=== PATIENT | female | born 1980 | race Caucasian/White ===

== ENCOUNTER 2017-10-17 14:10 | Emergency (ER) | payer OTHER ==
[~2017-10-17] VITALS: Ht 160 cm; Wt 77.1 kg
[2017-10-17] MEDS ORDERED: SYNTHROID100 MCG PO (14:33)
[2017-10-17] MEDS ORDERED: VITAMIN B-12500 MCG PO (14:33)
[2017-10-17] MEDS ORDERED: UNICOMPLEX M TA1 TA1 PO (14:33)
[2017-10-17] MEDS ORDERED: MAGNESIUM-VIT1 EACH PO (14:34)
[2017-10-17] MEDS ORDERED: CALCIUM 500 +1 EAC5 PO (14:34)
[2017-10-17 15:06] LABS: URINE BILIRUBIN NEGATIVE (Negative); URINE BLOOD NEGATIVE (Negative); URINE COLOR YELLOW; URINE GLUCOSE-RANDOM* NEGATIVE (Negative); URINE KETONES NEGATIVE (Negative); URINE LEUKOCYTES-REFLEX NEGATIVE (Negative); URINE PROTEIN (DIPSTICK) NEGATIVE (Negative); URINE SPECIFIC GRAVITY >= 1.030 (1.005-1.035); URINE UROBILINOGEN 0.2 E.U./dl (0.2-1.0)
[2017-10-17 15:16] LABS: HEMATOCRIT 28.2 % (37.0-47.0); HEMOGLOBIN 8.3 gm/dL (12.0-15.0); MCHC 29.3 g/dL (28.0-37.0); PLATELET COUNT 375 thou/uL (150-400); RBC 4.34 mil/uL (4.20-5.00); RDW 17.7 % (10.5-14.5); WBC 9.1 thou/uL (4.0-11.0)
[2017-10-17 15:17] LABS: MANUAL DIFF YES
[2017-10-17 15:32] LABS: CALCIUM 8.3 mg/dL (8.5-10.1); CREATININE 0.5 mg/dL (0.6-1.0); POTASSIUM 4.1 mmol/L (3.5-5.1)
[2017-10-17 15:39] LABS: ALBUMIN 3.2 g/dL (3.4-5.0); TOTAL BILIRUBIN 0.2 mg/dL (<0.1-1.0); TOTAL PROTEIN 6.8 g/dL (6.4-8.2)
[2017-10-17 15:55] LABS: ABSOLUTE NEUTROPHILS 6.6 thou/uL (1.4-8.2); TOTAL CELL COUNT 100
[2017-10-17 15:56] LABS: ANISOCYTOSIS 2+; HYPOCHROMASIA 2+; MICROCYTES 2+
[2017-10-17 15:57] LABS: OVALOCYTES 1+
[2017-10-17 16:19] LABS: AMP/METHAMP POSITIVE (Negative); BARBITURATES Negative (Negative); BENZODIAZEPINES Negative (Negative); COCAINE Negative (Negative); METHADONE Negative (Negative); OPIATES Negative (Negative); PCP Negative (Negative)
[2017-10-17] MEDS ORDERED: TRAMADOL 50 MG50 MG PO (16:55)
[2017-10-17] MEDS ORDERED: NAPROSYN500 MG PO (16:55)
[2017-10-17] MEDS ORDERED: CLEOCIN HCL150 MG PO (16:55)
[2017-10-17 18:29] VITALS: BP 119/80
== END 2017-10-17 18:31 | disposition home or self-care (01) ==
LOC: ER 14:10
PROVIDERS: Emergency Medicine
DX: L02.414 Cutaneous abscess of left upper limb (principal); Z98.890 Other specified postprocedural states

== ENCOUNTER 2017-11-05 01:51 | Inpatient (IN) | payer SELFPAY ==
[~2017-11-05] VITALS: Ht 160 cm; Wt 77.1 kg
--- NOTE | ~2017-11-05 | P ---
[facility] [place] [address] PROCEDURE REPORT Name: TENZIN URENA Room #: 406-P [facility] IN M.R.#: [id number] Admission: 11/05/17 Attend Phys: Zeyad Jovel, Discharge: 11/09/17 Date of : 80 Report #: [id number] THIS REPORT FOR: //name// CC: [facility] physician/PCP Zeyad Jovel DO DATE OF SERVICE: 11/08/2017 PATIENT OF: Dr. Zeyad Jovel. INDICATION FOR PROCEDURE: Evaluate right-sided abdominal pain. Today, the patient indicates that she is tender in her right lower quadrant and infraumbilical area. She does not have any rebound or guarding. She has a history of gastric bypass surgery several years ago. Informed consent for this procedure was obtained prior to the administration of any medication. The risks of the procedure which include bleeding, perforation, infection, complications of sedation and the possibility I could miss something have been explained to the patient and she has indicated her consent by signing. Propofol was slowly titrated before and during this procedure for patient comfort by the anesthesia service. The [employer] upper videoscope was introduced through the upper esophageal sphincter and advanced under direct visualization to the gastric pouch and then advanced down into the jejunum through the gastrojejunostomy. Findings are noted on withdrawal of the scope. The jejunal mucosa that was visualized to the length of the scope appears normal. The gastrojejunostomy anastomosis appears intact. The gastric pouch is quite small, but it appears intact also without any erythema. The scope was then withdrawn into the esophagus. The Z-line is appropriately located at the bottom of the esophagus and is intact. The esophageal mucosa appears normal throughout its entirety. The scope was withdrawn. The patient went to the recovery area in stable condition. She tolerated the procedure well. IMPRESSION: Normal esophagus, gastric pouch, gastrojejunostomy and visualized portions of the jejunum as above. Recommendations are for her to consider taking some laxatives to alleviate the constipation, possibly some suppositories as well. We will ask her to follow up with [facility] doctor as an outpatient to further evaluate her heavy menstrual blood loss and evaluate her uterine fibroid and ovarian cyst. The patient is premenopausal. This may be a simple corpus luteum cyst. [facility] [address] [place] [address] PROCEDURE REPORT Name: TENZIN URENA Room #: 406-P [facility] IN M.R.#: [id number] Admission: 11/05/17 Attend Phys: Zeyad Jovel DO Discharge: 11/09/17 Date of : 80 Report #: [id number] Thank you very much once again for allowing me to participate in her care, Dr. Jovel. <ELECTRONICALLY SIGNED> By: Ani Ayers DO 11/09/17 2133 1541 Ani Ayers, /nt
--- NOTE | ~2017-11-05 | HC ---
[facility] [place] [address] CONSULTATION Name: TENZIN URENA Room #: 406-P [facility] IN M.R.#: [id number] Admission: 11/05/17 Attend Phys: Zeyad Jovel DO Discharge: Date of : 80 Report #: [id number] THIS REPORT FOR: //name// CC: [facility] physician/PCP Zeyad Jovel DATE OF SERVICE: 11/05/2017 REASON FOR CONSULTATION: The patient is a 37-year-old woman with abdominal pain and abnormal liver function studies. HISTORY OF PRESENT ILLNESS: This patient has a history of morbid obesity and in May 2015, had a gastric bypass surgery. She reports that she lost approximately 150 pounds following that surgery. However, in August 2016, she developed a right upper quadrant pain and was evaluated, and had a cholecystectomy. It is not clear to me whether stones are identified or not. Regardless, she reports her pain improved following her cholecystectomy. History is also significant for drug use, originally narcotics related pain and later methamphetamine. She reports that she has had a recent relapse and is back using methamphetamines. She also admits that she does use needles. In the past 2 weeks, she has developed pain, which is in the right upper quadrant. The pain will come and go. It is often a dull and sharp pain, but at times will become so intense that it will cause her to double over. Interestingly, she reports that she is more likely to have pain if she does some sort of exertion such as lifting. She had recently moving stuff with her parents and had more pain. Due to this pain, she presented to the Emergency Room. She also complains of nausea and some diarrhea. She underwent evaluation in the Emergency Room. Laboratory studies revealed a white count of 5.5, hemoglobin of 7.3, MCV of 64.5 and a platelet count of 309,000. INR is normal at 1.1. Electrolytes are normal. BUN is 12, creatinine 0.5. Blood sugar is 107, calcium 8.0. Total bilirubin was 0.6, AST of 566, ALT of 407, alkaline phosphatase of 244. Albumin is 3.3, lipase of 106. In addition, she had a CT scan of the abdomen and pelvis with contrast. There is evidence of prior cholecystectomy. There is prominence of the extrahepatic common bile duct, which was seen on a CT last month when she had Emergency Room visit for pain. There has not been significant change in the prominence of the bile duct. No stones were identified. There was mild haziness of the small bowel mesentery with scattered lymph nodes, which was nonspecific. There may be a small amount of free pelvic fluid, but not significant ascites. Also, changes of previous gastric bypass were noted. She has a large uterine fibroid and also 4.3 right adnexal mass. [facility] [address] [place] [address] CONSULTATION Name: TENZIN URENA Room #: 406-P [facility] IN M.R.#: [id number] Admission: 11/05/17 Attend Phys: Zeyad Jovel DO Discharge: Date of : 80 Report #: [id number] With regards to liver disease, she reports no prior liver disease. She has not had jaundice or hepatitis in the past. She has used needles as noted above. She does not consume alcohol. There is no family history of liver disease. With regards to iron deficiency anemia, this has been a long-term problem. She reports she has had heavy menses. She was to take medication for her endometrium, but did not do so because she was concerned about the risk of cancer. She reports that at this time, her periods have been more stable, usually about once per month, the flow can be heavy and at times, she will pass large clots. PAST MEDICAL HISTORY: Abscess of the left arm, uterine mass. ALLERGIES: NONSTEROIDALS. I do not believe she is allergic, but she was told not to take them with her gastric bypass. MEDICATIONS: Usual home medicines are calcium, clindamycin, B12, levothyroxine, which she has not taken about a week or so, magnesium, and multivitamins with iron. FAMILY HISTORY: No family history of colon cancer or gallbladder disease. SOCIAL HISTORY: Single, no children. She works with software analysis. She smoked in the past, but not recently. REVIEW OF SYSTEMS: GENERAL: She felt warm, but never took her temperature, so she does not know if she has had a fever. She has not had any chills. CENTRAL NERVOUS SYSTEM: She reports she had seizures in the past, but also reports they were never evaluated and she has not had one recently. No focal weakness, numbness, loss of consciousness, strokes. ENT: No change in vision or hearing or sores in the mouth. PULMONARY: No cough, pneumonia or tuberculosis. CARDIOVASCULAR: No chest pain, chest tightness or palpitations. GASTROINTESTINAL: Some nausea, no vomiting, no hematemesis, no rectal bleeding, no previous GI evaluation. GENITOURINARY: Without dysuria or pyuria. GYNECOLOGIC: Heavy menses, uterine fibroid, and ovarian mass. MUSCULOSKELETAL: No arthralgias or myalgias. SKIN: Without rashes. PSYCHIATRIC: No depression, anxiety or bipolar illness. She has a drug addiction. HEMATOLOGIC: Iron deficiency anemia, no bleeding or bruising, no known neoplasm. PHYSICAL EXAMINATION: [facility] [address] [place] [address] CONSULTATION Name: TENZIN URENA Room #: 406-P [facility] IN [facility]#: [id number] Admission: 11/05/17 Attend Phys: Zeyad Jovel DO Discharge: Date of : 80 Report #: [id number] GENERAL: The patient is a well-developed, well-nourished woman who is awake, alert and oriented, no acute distress. VITAL SIGNS: Blood pressure is 122/66, pulse of 56. HEENT: Anicteric. Pupils are equal and round. Oropharynx is clear. NECK: Supple. CHEST: Clear. HEART: Regular rate and rhythm, normal S1 and S2. ABDOMEN: Normal bowel sounds, soft with mild right upper quadrant tenderness. Interestingly, she is most tender with palpation of the right lateral and right anterior chest wall. Pressing this area reproduces pain more so than pushing in the right upper quadrant under the costal margin. RECTAL: Not done. EXTREMITIES: Without cyanosis, clubbing, edema. NEUROLOGIC: Oriented to person, place, and time. Moves all 4 extremities well. ASSESSMENT: 1. Right upper quadrant pain. 2. Elevated LFTs. 3. Prominence of common bile duct, status post cholecystectomy. 4. Previous Kalyani-en-Y gastric bypass. 5. Iron deficiency anemia, long-term. COMMENT: On exam, there seemed to be more tenderness on the chest wall rather than the right upper quadrant. Etiology of her elevated transaminases is not entirely clear. It is also possible she has an acute hepatitis as she has been using drugs recently. She reports IV drug use. It is also noted when she is in the Emergency Room on 10/17/2017, her LFTs were completely normal at that time. RECOMMENDATIONS: 1. MRCP for further evaluation of biliary tree. 2. If there is concern of choledocholithiasis, may need to consider referral to another center as she has had a Kalyani-en-Y gastric bypass, which markedly limits access to the papilla and distal common bile duct. 3. Monitor liver function studies. 4. Check acute hepatitis panel. 5. Consider musculoskeletal source of her pain. <ELECTRONICALLY SIGNED> By: Kavin Wakefield MD 11/06/17 1631 [id number] Kavin Wakefield MD /nt
[~2017-11-05 01:51] MED LIST: CALCIUM 500 +1 EAC5 PO; CLEOCIN HCL150 MG PO; MAGNESIUM-VIT1 EACH PO; NAPROSYN500 MG PO; SYNTHROID100 MCG PO; TRAMADOL 50 MG50 MG PO; UNICOMPLEX M TA1 TA1 PO; VITAMIN B-12500 MCG PO
[2017-11-05 01:58] VITALS: BP 106/67
[2017-11-05 03:51] LABS: ABSOLUTE NEUTROPHILS 3.6 thou/uL (1.4-8.2); BASOPHILS 0.5 % (0.0-2.0); EOSINOPHILS 1.2 % (0.0-3.0); HEMATOCRIT 23.7 % (37.0-47.0); HEMOGLOBIN 7.3 gm/dL (12.0-15.0); LYMPHOCYTES 23.4 % (24.0-44.0); MCH 19.8 pg (26.0-34.0); MCHC 30.7 g/dL (28.0-37.0); MCV 64.5 fL (80.0-100.0); PLATELET COUNT 309 thou/uL (150-400); POLYS 65.9 % (36.0-66.0); RBC 3.68 mil/uL (4.20-5.00); WBC 5.5 thou/uL (4.0-11.0)
[2017-11-05 03:58] LABS: CREATININE 0.5 mg/dL (0.6-1.0); POTASSIUM 3.8 mmol/L (3.5-5.1)
[2017-11-05 04:04] LABS: ALBUMIN 3.3 g/dL (3.4-5.0); DIRECT BILIRUBIN 0.2 mg/dL (<0.1-0.3); TOTAL BILIRUBIN 0.6 mg/dL (<0.1-1.0); TOTAL PROTEIN 6.2 g/dL (6.4-8.2)
[2017-11-05 04:44] LABS: ANISOCYTOSIS 3+; HYPOCHROMASIA 1+; MICROCYTES 3+; OVALOCYTES 2+
[2017-11-05 06:32] LABS: APTT 26.8 Seconds (24.5-32.8); INR 1.1; PROTIME 11.6 Seconds (9.3-11.4)
[2017-11-05 08:03] VITALS: BP 129/76
[2017-11-05 10:17] VITALS: BP 127/66
[2017-11-05 16:00] VITALS: BP 121/76
[2017-11-05 16:02] LABS: % SATURATION 5 % (20-39); IRON 21 ug/dL (50-170); TIBC 413 ug/dL (250-450)
[2017-11-05 20:00] VITALS: BP 128/76
[2017-11-05 20:26] LABS: AMP/METHAMP POSITIVE (Negative); BARBITURATES Negative (Negative); BENZODIAZEPINES Negative (Negative); COCAINE Negative (Negative); METHADONE Negative (Negative); OPIATES Negative (Negative); PCP Negative (Negative)
[2017-11-05 20:28] LABS: URINE BLOOD NEGATIVE (Negative); URINE CLARITY CLOUDY; URINE COLOR BROWN; URINE GLUCOSE-RANDOM* NEGATIVE (Negative); URINE KETONES 1+ (Negative); URINE NITRITE-REFLEX NEGATIVE (Negative); URINE PROTEIN (DIPSTICK) NEGATIVE (Negative); URINE SPECIFIC GRAVITY >= 1.030 (1.005-1.035); URINE UROBILINOGEN 0.2 E.U./dl (0.2-1.0)
[2017-11-05 20:36] LABS: ICTOTEST (BILI CONFIRMATORY) Negative (Negative); URINE BILIRUBIN NEGATIVE (Negative); URINE LEUKOCYTES-REFLEX TRACE (Negative)
[2017-11-05 20:38] LABS: AMORPHOUS URATES Many /LPF (None Seen); BACTERIA-REFLEX 1-9 Few /HPF (None Seen); CASTS None Seen /LPF (None Seen); CRYSTALS None Seen /LPF (None Seen); MUCUS 0-3 Light strn/LPF (None Seen); SQUAMOUS None Seen /LPF (0-3); URINE RBC None Seen /HPF (0-2); URINE WBC-REFLEX 0-5 Rare /HPF (0-5)
[2017-11-05 20:39] LABS: URIC ACID CRYSTALS >10 Many /LPF (None Seen)
[2017-11-06 04:00] VITALS: BP 119/76
[2017-11-06 06:25] LABS: ABSOLUTE NEUTROPHILS 4.3 thou/uL (1.4-8.2); BASOPHILS 0.6 % (0.0-2.0); EOSINOPHILS 1.6 % (0.0-3.0); HEMATOCRIT 24.1 % (37.0-47.0); HEMOGLOBIN 7.4 gm/dL (12.0-15.0); LYMPHOCYTES 23.7 % (24.0-44.0); MCH 19.6 pg (26.0-34.0); MCHC 30.7 g/dL (28.0-37.0); MCV 63.9 fL (80.0-100.0); PLATELET COUNT 319 thou/uL (150-400); POLYS 64.1 % (36.0-66.0); RBC 3.77 mil/uL (4.20-5.00); RDW 18.1 % (10.5-14.5); WBC 6.7 thou/uL (4.0-11.0)
[2017-11-06 06:44] LABS: ALBUMIN 3.6 g/dL (3.4-5.0); CALCIUM 8.5 mg/dL (8.5-10.1); CREATININE 0.7 mg/dL (0.6-1.0); POTASSIUM 3.6 mmol/L (3.5-5.1); TOTAL BILIRUBIN 0.3 mg/dL (<0.1-1.0); TOTAL PROTEIN 6.7 g/dL (6.4-8.2)
[2017-11-06 08:00] VITALS: BP 118/58
[2017-11-06 08:24] LABS: ANISOCYTOSIS 2+; HYPOCHROMASIA 3+; MICROCYTES 3+
[2017-11-06 08:25] LABS: OVALOCYTES FEW
[2017-11-06 13:12] LABS: HAV IgM AB (ANTI-HAV IgM) Negative (Negative); HEPATITIS B SURFACE AG Negative (Negative); HEPATITIS C VIRUS AB <0.1 (0.0-0.9)
[2017-11-06 16:00] VITALS: BP 129/85
[2017-11-06 19:36] VITALS: BP 101/39
[2017-11-07 04:45] VITALS: BP 123/60
[2017-11-07 07:06] LABS: ALBUMIN 3.2 g/dL (3.4-5.0); DIRECT BILIRUBIN < 0.1 mg/dL (<0.1-0.3); SGOT 48 U/L (15-37); SGPT 170 U/L (30-65); TOTAL BILIRUBIN 0.3 mg/dL (<0.1-1.0); TOTAL PROTEIN 6.1 g/dL (6.4-8.2)
[2017-11-07 09:46] VITALS: BP 101/33
[2017-11-07 10:56] LABS: HEMATOCRIT 22.4 % (37.0-47.0); HEMOGLOBIN 6.7 gm/dL (12.0-15.0); MCH 19.5 pg (26.0-34.0); MCHC 29.8 g/dL (28.0-37.0); MCV 65.6 fL (80.0-100.0); RBC 3.41 mil/uL (4.20-5.00); RDW 18.2 % (10.5-14.5); WBC 6.5 thou/uL (4.0-11.0)
[2017-11-07 12:00] VITALS: BP 109/79
[2017-11-07 17:30] VITALS: BP 111/66; BP 99/59
[2017-11-07 18:12] LABS: CHOLESTEROL 84 mg/dL (<200); HDL CHOLESTEROL 39 mg/dL (>40); LDL CHOLESTEROL 36 mg/dL (<100); TC:HDL 2.2 Ratio (Not establshd); TRIGLYCERIDE 49 mg/dL (<150); VLDL 10 mg/dL (<40)
[2017-11-07 19:06] LABS: FOLIC ACID 15.5 ng/mL (8.6-58.9)
[2017-11-07 19:30] VITALS: BP 105/41
[2017-11-07 22:30] VITALS: BP 106/66; BP 127/69; BP 133/72
[2017-11-08 01:09] LABS: 25-HYDROXY TOTAL 43.4 ng/mL (30.0-100.0)
[2017-11-08 01:14] VITALS: BP 127/69
[2017-11-08 04:00] VITALS: BP 111/68
[2017-11-08 07:02] LABS: DIRECT BILIRUBIN 0.1 mg/dL (<0.1-0.3); TOTAL BILIRUBIN 0.5 mg/dL (<0.1-1.0)
[2017-11-08 08:00] VITALS: BP 121/79
[2017-11-08] MEDS ORDERED: OXYCODONE HCL 55 MG PO (13:11)
[2017-11-08 16:41] LABS: ABSOLUTE NEUTROPHILS 3.9 thou/uL (1.4-8.2); BASOPHILS 0.6 % (0.0-2.0); EOSINOPHILS 1.8 % (0.0-3.0); LYMPHOCYTES 26.5 % (24.0-44.0); MCH 21.7 pg (26.0-34.0); MCHC 32.1 g/dL (28.0-37.0); MCV 67.5 fL (80.0-100.0); PLATELET COUNT 258 thou/uL (150-400); POLYS 60.1 % (36.0-66.0); RBC 4.29 mil/uL (4.20-5.00); RDW 22.5 % (10.5-14.5); WBC 6.4 thou/uL (4.0-11.0)
[2017-11-08 16:43] LABS: HEMOGLOBIN 9.3 gm/dL (12.0-15.0)
[2017-11-08 16:56] LABS: CREATININE 0.5 mg/dL (0.6-1.0)
[2017-11-08 17:03] LABS: ANISOCYTOSIS 1+; HYPOCHROMASIA 1+; MICROCYTES 1+
[2017-11-08 17:04] LABS: CALCIUM 8.3 mg/dL (8.5-10.1)
[2017-11-08 19:37] VITALS: BP 99/52
[2017-11-09 04:00] VITALS: BP 110/65
[2017-11-09 09:54] LABS: ALBUMIN 3.1 g/dL (3.4-5.0); DIRECT BILIRUBIN 0.1 mg/dL (<0.1-0.3); TOTAL BILIRUBIN 0.4 mg/dL (<0.1-1.0); TOTAL PROTEIN 5.9 g/dL (6.4-8.2)
[2017-11-09 10:21] VITALS: BP 105/62
[2017-11-09 11:00] VITALS: BP 105/62
== END 2017-11-09 13:20 | disposition home or self-care (01) | DRG 446 ==
LOC: ER 01:51 → EROBS 07:20 → 4N 07:20
PROVIDERS: Emergency Medicine; Family Medicine; Nurse Practitioner; Specialist; Surgery
PROC: 30233N1 Transfusion of Nonautologous Red Blood Cells into Peripheral Vein, Percutaneous Approach (ICD-10-PCS; principal; 2017-11-07)
PROC: 0DJ08ZZ Inspection of Upper Intestinal Tract, Via Natural or Artificial Opening Endoscopic (ICD-10-PCS; 2017-11-08)
DX: K83.8 Other specified diseases of biliary tract (principal); F19.10 Other psychoactive substance abuse, uncomplicated; D50.9 Iron deficiency anemia, unspecified; R74.0 Nonspecific elevation of levels of transaminase and lactic acid dehydrogenase [LDH]; Z90.49 Acquired absence of other specified parts of digestive tract; Z79.899 Other long term (current) drug therapy; Z28.21 Immunization not carried out because of patient refusal
CPT/HCPCS: 10790; 62110; 62900; 70005

== ENCOUNTER 2019-09-25 15:00 | Emergency (ER) | payer OTHER ==
[~2019-09-25] VITALS: Ht 160 cm; Wt 63.5 kg
[~2019-09-25 15:00] MED LIST changes: +OXYCODONE HCL 55 MG PO
[2019-09-25] MEDS ORDERED: NEURONTIN100 MG PO (15:35)
[2019-09-25] MEDS ORDERED: CATAPRES0.1 MG PO (15:36)
[2019-09-25] MEDS ORDERED: VISTARIL50 MG PO (15:36)
[2019-09-25] MEDS ORDERED: TRILEPTAL300 MG PO (15:36)
[2019-09-25] MEDS ORDERED: SEROQUEL300 MG PO (15:36)
[2019-09-25] MEDS ORDERED: EFFEXOR XR150 MG PO (15:37)
[2019-09-25 16:07] LABS: ABSOLUTE NEUTROPHILS 9.6 thou/uL (1.4-8.2); BASOPHILS 0.3 % (0.0-2.0); HEMATOCRIT 43.4 % (37.0-47.0); HEMOGLOBIN 14.1 gm/dL (12.0-15.0); LYMPHOCYTES 14.6 % (24.0-44.0); MCH 29.3 pg (26.0-34.0); MCHC 32.5 g/dL (28.0-37.0); MCV 90.3 fL (80.0-100.0); MONOCYTES 6.3 % (1.0-8.0); PLATELET COUNT 362 thou/uL (150-400); POLYS 77.8 % (36.0-66.0); RDW 14.3 % (10.5-14.5); WBC 12.3 thou/uL (4.0-11.0)
[2019-09-25 16:09] LABS: ANION GAP 7 mmol/L (7-16); BUN 15 mg/dL (7-18); CALCIUM 8.7 mg/dL (8.5-10.1); CHLORIDE 106 mmol/L (98-107); CO2 29 mmol/L (21-32); CREATININE 0.6 mg/dL (0.6-1.0); GLUCOSE 106 mg/dL (74-106); POTASSIUM 3.6 mmol/L (3.5-5.1); SODIUM 142 mmol/L (136-145)
[2019-09-25 16:15] LABS: DIRECT BILIRUBIN < 0.1 mg/dL (<0.1-0.3); SGOT 28 U/L (15-37); SGPT 58 U/L (30-65); TOTAL BILIRUBIN 0.2 mg/dL (<0.1-1.0); TOTAL PROTEIN 6.3 g/dL (6.4-8.2)
[2019-09-25] MEDS ORDERED: KEFLEX500 M1 PO (20:15)
[2019-09-25] MEDS ORDERED: BACTRIM DS TAB1 EACH PO (20:15)
[2019-09-25 21:21] VITALS: BP 96/57
--- NOTE | 2019-09-27 12:50 | EKG ---
[place] [address] [facility] [place] [address] ELECTROCARDIOGRAM REPORT Name: TENZIN URENA [id number] Admission: 09/25/19 Attend Phys: Discharge: 09/25/19 Date of : 80 Report #: [id number] THIS REPORT FOR: //name// [facility] ED Test Date: 2019-09-25 Test Time: 15:12:24 Pat Name: TENZIN URENA Department: Room: Gender: F Academic Success Coordinator: LAURA : 1980 Requested By: Eusebio Kim Order Number: [id number] MD: Paulie Murillo Measurements Intervals [place] Rate: 96 P: 76 MA: 127 QRS: 78 QRSD: 95 T: 42 QT: 365 QTc: 462 Interpretive Statements Sinus rhythm Nonspecific ST segment abnormality No previous ECG available for comparison Electronically Signed On 09-27-2019 12:50:21 [employer]PORATE LEGAL ASSISTANT by Paulie Murillo [email or web address] <ELECTRONICALLY SIGNED> By: Paulie Murillo MD, [facility] 09/27/19 1250 1512 1512 Paulie Murillo MD, FACC /EPI
== END 2019-09-25 21:22 | disposition home or self-care (01) ==
LOC: ER 15:00
PROVIDERS: Emergency Medicine
DX: L02.414 Cutaneous abscess of left upper limb (principal); L03.114 Cellulitis of left upper limb; Z88.8 Allergy status to other drugs, medicaments and biological substances

== ENCOUNTER 2019-09-27 15:47 | Emergency (ER) | payer OTHER ==
[~2019-09-27] VITALS: Ht 160 cm; Wt 63.5 kg
[~2019-09-27 15:47] MED LIST changes: +BACTRIM DS TAB1 EACH PO; +CATAPRES0.1 MG PO; +EFFEXOR XR150 MG PO; +KEFLEX500 M1 PO; +NEURONTIN100 MG PO; +SEROQUEL300 MG PO; +TRILEPTAL300 MG PO; +VISTARIL50 MG PO
[2019-09-27 16:47] LABS: HEMATOCRIT 40.8 % (37.0-47.0); HEMOGLOBIN 13.4 gm/dL (12.0-15.0); MCH 29.5 pg (26.0-34.0); MCHC 32.8 g/dL (28.0-37.0); MCV 89.9 fL (80.0-100.0); RBC 4.54 mil/uL (4.20-5.00); RDW 13.8 % (10.5-14.5); WBC 8.7 thou/uL (4.0-11.0)
[2019-09-27 16:57] LABS: CALCIUM 8.7 mg/dL (8.5-10.1); CREATININE 0.7 mg/dL (0.6-1.0); POTASSIUM 3.9 mmol/L (3.5-5.1)
[2019-09-27 18:15] VITALS: BP 122/64
[2019-09-27] MEDS ORDERED: BACTRIM DS TAB1 EACH PO (18:16)
[2019-09-27] MEDS ORDERED: KEFLEX500 M1 PO (18:16)
== END 2019-09-27 18:15 | disposition home or self-care (01) ==
LOC: ER 15:47
PROVIDERS: Emergency Medicine
DX: Z48.01 Encounter for change or removal of surgical wound dressing (principal); E87.2 Acidosis

== ENCOUNTER 2019-10-26 17:01 | Emergency (ER) | payer OTHER ==
[~2019-10-26] VITALS: Ht 160 cm; Wt 72.6 kg
[2019-10-26 17:19] LABS: URINE BILIRUBIN NEGATIVE (Negative); URINE BLOOD 2+ (Negative); URINE COLOR YELLOW; URINE GLUCOSE-RANDOM* NEGATIVE (Negative); URINE KETONES TRACE (Negative); URINE NITRITE-REFLEX NEGATIVE (Negative); URINE PROTEIN (DIPSTICK) NEGATIVE (Negative); URINE SPECIFIC GRAVITY >= 1.030 (1.005-1.035); URINE UROBILINOGEN 0.2 E.U./dl (0.2-1.0)
[2019-10-26 17:20] LABS: URINE CLARITY HAZY; URINE LEUKOCYTES-REFLEX 1+ (Negative)
[2019-10-26 17:27] LABS: CALCIUM OXALATE 4-10 Moderate /LPF (None Seen); CASTS None Seen /LPF (None Seen); SQUAMOUS 0-3 Few /LPF (0-3)
[2019-10-26 17:28] LABS: AMORPHOUS URATES Few /LPF (None Seen); BACTERIA-REFLEX 1-9 Few /HPF (None Seen); URINE RBC 0-2 Rare /HPF (0-2); URINE WBC-REFLEX 0-5 Rare /HPF (0-5)
[2019-10-26 18:09] LABS: ABSOLUTE NEUTROPHILS 9.3 thou/uL (1.4-8.2); BASOPHILS 0.3 % (0.0-2.0); HEMATOCRIT 37.2 % (37.0-47.0); HEMOGLOBIN 12.4 gm/dL (12.0-15.0); LYMPHOCYTES 18.1 % (24.0-44.0); MCH 29.8 pg (26.0-34.0); MCHC 33.4 g/dL (28.0-37.0); MCV 89.4 fL (80.0-100.0); MONOCYTES 6.2 % (1.0-8.0); PLATELET COUNT 298 thou/uL (150-400); POLYS 74.4 % (36.0-66.0); RBC 4.16 mil/uL (4.20-5.00); RDW 13.6 % (10.5-14.5); WBC 12.5 thou/uL (4.0-11.0)
[2019-10-26 18:16] LABS: CALCIUM 9.6 mg/dL (8.5-10.1); CREATININE 0.6 mg/dL (0.6-1.0)
[2019-10-26 18:22] LABS: ALBUMIN 3.4 g/dL (3.4-5.0); TOTAL BILIRUBIN 0.1 mg/dL (<0.1-1.0); TOTAL PROTEIN 6.7 g/dL (6.4-8.2)
[2019-10-26] MEDS ORDERED: NORCO 7.5-3251 EACH PO (20:10)
[2019-10-26] MEDS ORDERED: BACTRIM DS TAB1 EACH PO ×2 (20:10→20:14)
[2019-10-26] MEDS ORDERED: SENNA8.8 MG/5 M PO (20:13)
[2019-10-26 20:20] VITALS: BP 99/63
== END 2019-10-26 20:20 | disposition home or self-care (01) ==
LOC: ER 17:01
PROVIDERS: Physician Assistant
DX: N76.4 Abscess of vulva (principal); K59.00 Constipation, unspecified; R10.9 Unspecified abdominal pain; Z98.84 Bariatric surgery status; Z88.6 Allergy status to analgesic agent